=== PATIENT | male | born 1985 | race African-American/Black ===

== ENCOUNTER 2017-08-15 11:16 | Emergency (ER) | payer BC ==
[2017-08-15] MEDS ORDERED: DEXAMETHASONE 4 MG/ML VIAL ONE ×2 (13:08→13:11)
[2017-08-15] MEDS ORDERED: KETOROLAC 30 MG/ML INJ ONE (13:09)
--- NOTE | 2017-08-15 13:36 | ER ---
Nurse's Notes [facility] Name: Renato Tran II Age: 31 yrs Sex: Male : 1985 Arrival Date: 08/15/2017 Time: 11:19 Bed 12 Private MD: None, None Diagnosis: Sciatica, left side Presentation: 08/15 11:24 Presenting complaint: Patient states: left low back pain radiating down left leg that aa5 began 1 week ago. Pt denies injury. Transition of care: patient was not received from another setting of care. Onset of symptoms was August 2017. Risk Assessment: Do you want to hurt yourself or someone else? Patient reports no desire to harm self or others. Initial Sepsis Screen: Does the patient meet any 2 criteria? No. Patient's initial sepsis screen is negative. Does the patient have a suspected source of infection? No. Patient's initial sepsis screen is negative. Care prior to arrival: None. 11:24 Method Of Arrival: Ambulatory aa5 11:24 Acuity: KEREN 4 aa5 Historical: - Allergies: 11:25 No Known Allergies; aa5 - PMHx: 11:25 None; aa5 - PSHx: 11:25 right shoulder; aa5 - Immunization history:: Adult Immunizations up to date. - Social history:: Smoking status: Patient/guardian denies using tobacco. - Ebola Screening: : No symptoms or risks identified at this time. Screenin:00 Abuse screen: Denies threats or abuse. Nutritional screening: No deficits noted. aa5 Tuberculosis screening: No symptoms or risk factors identified. Fall Risk None identified. Assessment: 12:00 General: Appears comfortable, Behavior is calm, cooperative. Pain: Complains of pain in aa5 left low back Pain radiates to left leg Pain currently is 3 out of 10 on a pain scale. at worst was 9 out of 10 on a pain scale. Quality of pain is described as sharp, shooting, Pain began 1 week ago Is continuous, Aggravated by increased activity, repositioning. Neuro: Level of Consciousness is awake, alert, obeys commands, Oriented to person, place, time, situation. Cardiovascular: Heart tones S1 S2 present Rhythm is regular. Respiratory: Airway is patent Respiratory effort is even, unlabored, Respiratory pattern is regular, symmetrical. GI: No signs and/or symptoms were reported involving the gastrointestinal system. : No signs and/or symptoms were reported regarding the genitourinary system. EENT: No signs and/or symptoms were reported regarding the EENT system. Derm: Skin is dry, Skin is normal, Skin temperature is warm. Musculoskeletal: Range of motion: intact in all extremities. 13:50 Neuro: Level of Consciousness is awake, alert, obeys commands, Oriented to person, aa5 place, time, situation. Respiratory: Airway is patent Respiratory effort is even, unlabored, Respiratory pattern is regular, symmetrical. Derm: Skin is dry, Skin is normal, Skin temperature is warm. 13:50 Pain: Pain currently is 3 out of 10 on a pain scale. aa5 Vital Signs: 11:25 BP 123 / 75; Pulse 80; Resp 16 S; Temp 98.5(TE); Pulse Ox 99% on R/A; Weight 72.57 kg aa5 (R); Height 6 ft. 0 in. (182.88 cm) (R); Pain 3/10; 11:25 Body Mass Index 21.70 (72.57 kg, 182.88 cm) aa5 ED Course: 11:19 Patient arrived in ED. sb2 11:19 None, None is Private Physician. sb2 11:25 Triage completed. aa5 11:25 Arm band placed on. aa5 11:26 Leslye Amaya, PRIYANKA is Primary Nurse. aa5 11:30 Julian Ryder PA is PHCP. jm 11:30 Hamlet Song MD is Attending Physician. [facility] 12:00 Patient has correct armband on for positive identification. Call light in reach. aa5 13:50 No provider procedures requiring assistance completed. Patient did not have IV access aa5 during this emergency room visit. Administered Medications: 13:13 Drug: Dexamethasone 10 mg Route: IM; Site: right gluteus; aa5 13:50 Follow up: Response: No adverse reaction aa5 13:14 Drug: Ketorolac 30 mg Route: IM; Site: left gluteus; aa5 13:50 Follow up: Response: No adverse reaction aa5 Outcome: 13:35 Discharge ordered by . jm 13:50 Discharged to home ambulatory. aa5 13:50 Condition: stable 13:50 Discharge instructions given to patient, Instructed on discharge instructions, follow up and referral plans. medication usage, Demonstrated understanding of instructions, follow-up care, medications, Prescriptions given X 2. 13:53 Patient left the ED. Signatures: Julian Ryder PA PA jmm Calderon, Audri RN RN aa5 Andie Banda RN RN ss Virginia Herrera sb2
--- NOTE | 2017-08-15 13:36 | EDPHYS ---
Physician Documentation [facility] Name: Renato Tran II Age: 31 yrs Sex: Male : 1985 Arrival Date: 08/15/2017 Time: 11:19 Bed 12 Private MD: None, None ED Physician Hamlet Song HPI: 08/15 12:54 This 31 yrs old Black Male presents to ER via Ambulatory with complaints of Back Pain. jmm 12:54 The patient presents with pain that is acute, with no known mechanism of injury. The jmm symptoms are located in the low back. Onset: The symptoms/episode began/occurred gradually, 6 day(s) ago. The pain radiates to the left leg. Associated signs and symptoms: Pertinent negatives: abdominal pain, constipation, dysuria, fever, hematuria, incontinence, nausea, numbness, tingling, urinary retention, weakness. The patient has experienced a previous episode. Historical: - Allergies: 11:25 No Known Allergies; aa5 - PMHx: 11:25 None; aa5 - PSHx: 11:25 right shoulder; aa5 - Immunization history:: Adult Immunizations up to date. - Social history:: Smoking status: Patient/guardian denies using tobacco. - Ebola Screening: : No symptoms or risks identified at this time. ROS: 12:54 Constitutional: Negative for fever, chills, and weight loss, Cardiovascular: Negative jmm for chest pain, palpitations, and edema, Respiratory: Negative for shortness of breath, cough, wheezing, and pleuritic chest pain, Abdomen/GI: Negative for abdominal pain, nausea, vomiting, diarrhea, and constipation. 12:54 Back: Positive for pain at rest, pain with movement. 12:54 MS/extremity: Positive for pain. 12:54 Neuro: Negative for weakness. 12:54 All other systems are negative. Exam: 12:54 Head/Face: atraumatic. Chest/axilla: Normal chest wall appearance and motion. jmm Nontender with no deformity. No lesions are appreciated. Cardiovascular: Regular rate and rhythm. No gallops, murmurs, or rubs. Full/Equal distal pulses. Respiratory: Lungs have equal breath sounds bilaterally, clear to auscultation. No rales, rhonchi or wheezes noted. No increased work of breathing, no retractions or nasal flaring. Abdomen/GI: Soft, non-tender, with normal bowel sounds. No distension or tympany. No guarding or rebound. No evidence of tenderness throughout. 12:54 Constitutional: The patient appears in no acute distress, alert, awake. 12:54 Back: pain, that is mild, of the left low back, ROM is normal. 12:54 Musculoskeletal/extremity: ROM: intact in all extremities, Full extension of the great toe is appreciated. 12:54 Skin: Appearance: Color: normal in color. 12:54 Neuro: Orientation: is normal, Mentation: is normal, Memory: is normal, Gait: is steady. 12:54 Psych: Behavior/mood is pleasant, cooperative. Vital Signs: 11:25 BP 123 / 75; Pulse 80; Resp 16 S; Temp 98.5(TE); Pulse Ox 99% on R/A; Weight 72.57 kg aa5 (R); Height 6 ft. 0 in. (182.88 cm) (R); Pain 3/10; 11:25 Body Mass Index 21.70 (72.57 kg, 182.88 cm) aa5 MDM: 12:53 Patient medically screened. [facility] 12:54 Differential diagnosis: sciatica, bulging disc, DDD. Data reviewed: vital signs, nurses jm notes. ED course: Extensor hallucis longus motor function intact, no clinical sings signs of cord compression appreciated. 13:10 Counseling: I had a detailed discussion with the patient and/or guardian regarding: the [facility] historical points, exam findings, and any diagnostic results supporting the discharge/admit diagnosis, the presence of at least one elevated blood pressure reading (>120/80) during this emergency department visit, the need for outpatient follow up, to return to the emergency department if symptoms worsen or persist or if there are any questions or concerns that arise at home. Administered Medications: 13:13 Drug: Dexamethasone 10 mg Route: IM; Site: right gluteus; aa5 13:50 Follow up: Response: No adverse reaction aa5 13:14 Drug: Ketorolac 30 mg Route: IM; Site: left gluteus; aa5 13:50 Follow up: Response: No adverse reaction aa5 Disposition: 14:38 Co-signature as Attending Physician, Hamlet Song MD I agree with the assessment and kdr plan of care. Disposition: 08/15/17 13:35 Discharged to Home. Impression: Sciatica, left side. - Condition is Stable. - Discharge Instructions: Sciatica. - Prescriptions for Ibuprofen 800 mg Oral Tablet - take 1 tablet by ORAL route every 8 hours As needed take with food; 30 tablet. orphenadrine citrate 100 mg Oral Tablet Sustained Release - take 1 tablet by ORAL route 2 times per day As needed; 20 tablet. - Work release form, Medication Reconciliation Form, Thank You Letter, Antibiotic Education, Prescription Opioid Use form. - Follow up: Private Physician; When: 1 - 2 days; Reason: Continuance of care. Signatures: Hamlet Song MD MD kdr Mickail, Joel, PA PA jmm Calderon, Audri, RN RN aa5 Andie Banda RN RN ss Corrections: (The following items were deleted from the chart) 13:53 13:35 08/15/2017 13:35 Discharged to Home. Impression: Sciatica, left side. Condition ss is Stable. Forms are Medication Reconciliation Form, Thank You Letter, Antibiotic Education, Prescription Opioid Use. Follow up: Private Physician; When: 1 - 2 days; Reason: Continuance of care. [place]
== END 2017-08-15 13:53 | disposition home or self-care (01) ==
LOC: ER 11:16
DX: M54.32 Sciatica, left side (principal)
CPT/HCPCS: 96372; 99283